=== PATIENT | male | born 1940 | race Caucasian/White ===

== ENCOUNTER 2021-07-04 10:50 | Outpatient (REF) | payer OTHER, SELFPAY ==
--- NOTE | ~2021-07-04 | MR_ITS ---
EXAMINATION: MR BRAIN WITHOUT AND WITH CONTRAST CLINICAL INFORMATION: Left-sided hearing loss. COMPARISON: No relevant prior imaging. TECHNIQUE: Multiplanar MR imaging of the brain was performed without and with contrast. A total of 10 mL Gadavist was utilized for this examination. FINDINGS: There is no cerebellopontine angle cistern mass. No abnormal enhancement along the cisternal segments of the 7th or 8th cranial nerves. Labyrinthine structures are morphologically normal. Trace left mastoid tip effusion. No abnormal petrous temporal bone enhancement. Postcontrast images of the whole brain reveal no abnormal mass or enhancement elsewhere within the intracranial compartment. There is no intracranial mass effect or midline shift. No abnormal extra-axial collection. Lateral and third ventricles are normal. No hydrocephalus. Midline structures including the cervicomedullary junction are normal. No acute bone marrow signal changes. There are scattered nonspecific foci of T2 FLAIR signal hyperintensity within the periventricular white matter that most likely represent a chronic manifestation of small vessel ischemia. Prominent perivascular spaces are also visualized within the right lentiform nucleus and the left thalamus. No acute territorial infarct. No pathological magnetic susceptibility artifact. MR/MR head/brain wo/w con IMPRESSION: There are scattered chronic small vessel ischemic changes within the periventricular white matter. Otherwise unremarkable examination. No evidence of acute territorial infarct or hemorrhage. No discrete anatomic finding to provide an explanation for this patient's left-sided hearing loss.
== END 2021-07-04 10:51 | disposition home or self-care (01) ==
LOC: HO.MRI 10:50
PROVIDERS: PCP Obstetrics & Gynecology; Visit Provider Internal Medicine
DX: H91.93 Unspecified hearing loss, bilateral (principal)
CPT/HCPCS: 70553; A9585

== ENCOUNTER 2023-03-19 07:13 | Emergency (ER) | payer OTHER, SELFPAY ==
--- NOTE | ~2023-03-19 | CT_ITS ---
EXAMINATION: CT angio head neck CLINICAL INFORMATION: Left-sided weakness. COMPARISON: CT head 03/19/2023. Brain MRI 07/04/2021. TECHNIQUE: Risk Investigator images were obtained. A CT angiogram of the head and neck was performed in the arterial phase after the intravenous administration of 70 mL Omnipaque 350. Pre and delayed postcontrast images of the head were also obtained. 3D images were processed on an independent workstation under concurrent supervision. Arterial stenoses are measured in accordance with NASCET criteria or similar method if applicable. This CT examination was performed using dose optimization techniques as appropriate, including one or more of the following: Automated exposure control, iterative reconstruction, and adjustment of technique factors (mA and/or kVp) according to patient size (this includes techniques or standardized protocols for targeted exams where dose is matched to indication/reason for exam). Fleischner Society criteria for the followup of incidental pulmonary nodules was implemented if appropriate. Total exam dose-length product 1500 mGy-cm FINDINGS: Head: Delayed postcontrast images reveal no abnormal intracranial mass or enhancement. There is no intracranial mass effect midline shift. Lateral and third ventricles are normal. No hydrocephalus. Knapp-white matter differentiation is preserved and there is no evidence of acute territorial infarct. The calvarium and skull base are intact. Mastoid air cells and middle ear cavities are well aerated. Mild to moderate paranasal sinus disease primarily affecting the ethmoid air cells. Globes and orbits are symmetric. CT angiogram neck: Patient motion degrades image quality on this component examination. Diagnostic quality is therefore limited. Scattered atheromatous calcification involves the aortic arch apex. Origins of major aortic branches are patent. Common carotid arteries are patent. Heavily calcified atherosclerotic plaque involves both carotid bifurcations and there is 75% stenosis at the origins of both internal carotid arteries. The cervical segments of the vertebral arteries are grossly patent. CT angiogram head: Atheromatous calcification involves the cavernous segments of both internal carotid arteries. Intracranial internal carotid arteries are otherwise patent. The right intradural vertebral artery is hypoplastic and the right vertebral artery primarily disease as the PICA. The left intradural vertebral artery is widely patent and continues as the basilar. 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 This finding is best demonstrated on axial image 259 of 126 series 6. There is a high density filling defect possibly representing a calcified atheroembolism located within the right middle cerebral artery bifurcation that appears to result in occlusion of an M2 branch of the right middle cerebral artery. There is also a nonocclusive component of this filling defect that extends into another anterior M2 branch. Anterior, middle, and posterior cerebral artery complexes are otherwise unremarkable. The timing of the contrast injection provides adequate opacification of the dural venous sinuses which are patent. Other: No tissue is atrophic. Visualized soft tissues of the neck are otherwise unremarkable. Grossly no pathologically enlarged cervical lymph nodes. Lung apices are clear. There is advanced multilevel degenerative spondylosis of the cervical spine with at least moderate canal stenosis at multiple levels. Grossly no worrisome lytic or blastic osseous lesion. CT/CT angio head neck IMPRESSION: Patient motion degrades image quality on this component examination. Diagnostic quality is therefore limited. Heavily calcified atheromatous plaque involves both carotid bifurcations and there is 75% stenosis at the origins of both internal carotid arteries. Cervical vertebral arteries are grossly patent. There is a high density filling defect possibly representing a calcified atheroembolism located within the distal M1 segment of the right middle cerebral artery that appears to result in occlusion of an M2 branch of the right middle cerebral artery. There is also a nonocclusive component of this filling defect that extends into another anterior M2 branch of the right middle cerebral artery. 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 There is advanced multilevel degenerative spondylosis of the cervical spine with at least moderate canal stenosis at multiple levels. If there are clinical symptoms of compressive myelopathy then a dedicated cervical spine MRI can be obtained for better anatomic characterization of the cord and canal. This critical result was discussed with Martha Oneal MD at 8:37 AM and 8:49 AM on 03/19/2023 and it was ascertained that the content and urgency of the report was understood at the time of direct communication.
--- NOTE | ~2023-03-19 | CT_ITS ---
EXAMINATION: CT HEAD WITHOUT CONTRAST (STROKE PROTOCOL) CLINICAL INFORMATION: Stroke protocol. Left-sided deficits. COMPARISON: MRI of head from 07/04/2021. TECHNIQUE: Contiguous axial imaging was performed from the skull base to vertex without intravenous administration of contrast. This CT examination was performed using dose optimization techniques as appropriate, variously including the following: *Automated exposure control *Adjustment of mA and/or kV according to patient size (this includes techniques or standardized protocols for targeted exams where dose is matched to indication/reason for exam; i.e. extremities or head) *Use of iterative reconstruction technique DLP: 655 mGy-cm FINDINGS: There is atherosclerotic calcification of cavernous carotid arteries. Also, there is linear calcific density (approximately 150 HU attenuation) in region of junction of M1 and M2 segments of the right middle cerebral artery. The burnett-white matter differentiation is maintained. No evidence of intracranial hemorrhage, extra-axial surface collection, focal mass effect or midline shift. There is hypoattenuation within deep/periventricular white matter compatible with sequela chronic microangiopathy. There are old small lacunar infarcts of the right caudate head and left thalamus. Mild parenchymal volume loss with commensurate prominence of ventricles and sulci. There have been ocular lens extractions. Minimal mucosal thickening of maxillary and sphenoid sinuses. The evaluation of temporomandibular joints is partially limited by patient motion. There might be an old healed fracture of the right mandibular condyle. CT/CT head for stroke IMPRESSION: * No evidence of acute hemorrhage or acute major vascular territory infarction. * There is linear calcific density in region of junction of M1/M2 segments of the right middle cerebral artery. Consider correlation with CT angiography to evaluate flow through the major cerebral vessels. * There are old lacunar infarcts of the right caudate head and left thalamus. All also, chronic mild small vessel ischemic changes are present within supratentorial white matter. This critical result was discussed with ASHLEY Cheema, and Dr. Oneal at 7:40 AM on 03/19/2023. It was ascertained that the content and urgency of the report was understood at the time of direct communication.
--- NOTE | 2023-03-19 07:17 | ECG_ITS ---
Test Reason : STROKE Blood Pressure : / mmHG Vent. Rate : 059 BPM Atrial Rate : 059 BPM P-R Int : 264 ms QRS Dur : 110 ms QT Int : 438 ms P-R-T Axes : 080 -15 060 degrees QTc Int : 433 ms Poor data quality Sinus bradycardia with 1st degree A-V block Left axis deviation Borderline ECG When compared with ECG of 07-JAN-2018 09:38, Nonspecific T wave abnormality no longer evident in Lateral leads Referred By: Martha Onael Electronically Signed By:BABAK ACUNA MD
--- NOTE | 2023-03-19 07:18 | ED_ITS ---
HPI - Neuro Symptoms/Deficit General Chief Complaint: Stroke Stated Complaint: STROKE ALERT,LKWT LAST NOC,L DROOP Time Seen by Provider: 03/19/23 07:15 Source: patient and EMS Mode of arrival: EMS History of Present Illness HPI Narrative: 82-year-old male who is brought in by EMS with last known well of last night at approximately 21:00, on blood thinners, found on the floor this morning and significant left-sided deficits. Related Data Allergies Allergy/AdvReac Type Severity Reaction Status Date / Time felodipine [FELODIPINE] Allergy Unknown UNKNOWN Unverified 02/05/20 15:21 lisinopril [LISINOPRIL] Allergy Unknown UNKNOWN Unverified 02/05/20 15:21 Felodipine Allergy Unknown Uncoded 01/16/18 00:00 Review of Systems 2 Review of Systems: Pertinent positives and negatives as stated in HPI [facility] Social History Social History Advance Directives: No Physical Exam 2 Vital Signs: Vital Signs: Last Vital Signs Temp 98 F 03/19/23 07:31 Pulse 58 03/19/23 08:21 Resp 14 03/19/23 08:21 BP 164/70 H 03/19/23 08:21 Pulse Ox 98 03/19/23 08:21 O2 Del Method Nasal Cannula 03/19/23 08:21 O2 Flow Rate 1 03/19/23 08:21 BMI result Body Mass Index 30.0 VITAL SIGNS: Reviewed. GENERAL: Well developed, well nourished, in no acute distress. HEAD: Normocephalic/atraumatic, EYES: PERRLA, EOMI intact without pain, no nystagmus/pallor/icterus noted EARS: Ext canals without abnormality, TMs non-bulging and non-erythematous NOSE: Nares patent bilateral OROPHARYNX: no oral lesions noted, posterior pharynx clear and non-erythematous without noted tonsillar enlargement/erythema/exudates NECK: Supple, no adenopathy LUNGS: Normal breath sounds. No adventitious sounds or accessory muscle use. SpO2<> CARDIOVASCULAR: Regular rate and rhythm without noted murmurs, no JVD or lower extremity edema. ABDOMEN: Soft, non-tender, non-distended with bowel sounds. No rigidity. No guarding. No palpable masses or hernias noted MUSCULOSKELETAL: No tenderness, deformities, or effusions noted on gross inspection. EXTREMITIES: No cyanosis, clubbing or edema. SKIN: Inspection of the skin reveals no rashes, ulcerations, jaundice, pallor, or petechiae. NEUROLOGIC: Alert and oriented x 4. Strength and sensation to light touch were grossly intact x 4. Medications Administered Discontinued Medications Generic Name Dose Route Start Last Admin Trade Name Riki PRN Reason Stop Dose Admin Iohexol 100 ml 03/19/23 08:05 03/19/23 08:05 Iohexol 350 Mg/Ml 100 Ml Infus..Btl IV 03/19/23 08:06 70 ml ONCE ONE Administration Medical Decision Making Medical Decision Making [facility] Narrative: 0715: 82-year-old male on anticoagulation presents with left-sided deficits. 0725: [facility] get [facility]none seen on patient's provided med list. 0727: Unoffocial read is RIGHT MCA clot from Dr Lagos. Awaiting [place] read. 0740: Discussed with neurology, Dr Sarmiento with wake-up stroke and recommend transfer to [facility] 0742: Spoke to [place] radiology regarding ?calcific density on the right with ?M1/M2 occlusion, recommends CT angio head/neck. proceeding with CT angio head/neck 0744: Spoke with [facility] who will page neuroendovascular specialist. 0750: I spoke with Dr Carrillo, recommends Ed-to-ED for perfusion scan, ALS called. 0755: Spoke with Dr Barnes, ED, regarding transfer and plan. 0809: Review of investigations demonstrates hematologic indices without leukocytosis but there is a noted left shift, there is a macrocytic anemia with no indication of acute bleeding at this time and there is a noted thrombocytopenia. There are no laboratory testing for comparison but blood pressure and heart rate are stable. Coagulation studies are within normal limits. 0826: ALS arrived Differential Diagnosis Differential Diagnoses: The differential diagnosis associated with the presentation includes Please see the discussion above Admission/Observation Consideration of admission/observation: Escalation of care including admission/observation considered Please see the discussion above Consult Healthcare Provider Management of the patient was discussed with: Sustain Engineer Please see the discussion above Lab Data [facility] Lab Attestation statement: I reviewed the patient's lab results. Please see the discussion above 03/19/23 07:58 03/19/23 07:58 Labs: Lab Results 03/19/23 03/19/23 Range/Units 07:19 07:58 WBC 7.0 (4.8-10.8) X10*3/uL RBC 2.28 L (4.60-5.80) X10*6/uL Hgb 7.1 L (14.0-18.0) g/dl Hct 22.5 L (42.0-52.0) % MCV 98.7 H (80.0-98.0) fL MCH 31.1 (27.0-33.0) pg MCHC 31.6 (31.0-36.0) g/dl RDW 17.4 H (11.0-16.0) % Plt Count 140 L (160-400) X10*3/uL MPV 11.8 (9.4-12.4) fL Immature Gran % (Auto) 0.4 (0.0-0.4) % Neut % (Auto) 76.4 H (45-73) % Lymph % (Auto) 9.1 L (20-40) % Caldwell % (Auto) 8.3 (2-11) % Eos % (Auto) 5.2 H (0-4) % Baso % (Auto) 0.6 (0-2) % Lymph # (Auto) 0.6 L (1.2-4.9) X10*3/uL Caldwell # (Auto) 0.6 (0.1-1.2) X10*3/uL Eos # (Auto) 0.4 (0.0-0.4) X10*3/uL Baso # (Auto) 0.0 (0.0-0.2) X10*3/uL Abs Immat Gran (auto) 0.03 (0.00-0.03) X10*3/uL Absolute Neuts (auto) 5.3 (2.0-8.3) x10*3/uL Absolute Nucleated RBC 0.000 (0.0-0.012) X10*3/uL Nucleated RBC % (auto) 0.0 (0.0-0.2) /100WBC PT 12.9 (11.1-13.3) SEC INR 1.1 (0.9-1.1) APTT 29.5 (26.0-36.4) SEC POC Glucose 101 (60-115) mg/dL Independent Interpretation I performed an independent interpretation of an: EKG Interpretation: Sinus bradycardia with first-degree AV block, HR -59, no STEMI, [place]-to 64, QRS- 110, QTC within normal limits. Radiology Impression Discussion of test interpretation with radiology: I have reviewed the radiologist's reading. Radiologist Impression: Please see the discussion above Independent Historian Clinical information obtained from an independent historian. History obtained from or confirmed by: EMS and Other Granddaughter Chronic Conditions Patient?s care impacted by: Diabetes and Hypertension NIH Stroke Scale Internal: Initial- Upon Arrival Level of Consciousness: Alert Level of Consciousness Questions: Answers both questions correctly Level of Consciousness Commands: Performs both tasks correctly Best Gaze: Normal Visual: No visual loss Facial Palsy: Normal Motor Arm (Right): No drift Motor Arm (Left): Some effort against gravity Motor Leg (Right): No drift Motor Leg (Left): Some effort against gravity Limb Ataxia: Absent Sensory: Normal Best Language: No aphasia Dysarthia: Mild to moderate dysarthria Extinction and Inattention: No abnormality Score: 5 Critical Care Time Critical Care Time Critical Care Time: Yes Total Critical Care Time: 60 Attestation: I personally attest to this time spent taking care of the patient. 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
[2023-03-19 07:31] VITALS: BP 179/57; PULSE 79; RESP 19; TEMP 36.6; O2SAT 94
[2023-03-19 08:03] LABS: MANUAL DIFF FLAG NO
[2023-03-19 08:04] LABS: Basophils Percent Auto 0.6 % (0-2); Eosinophils Absolute Auto 0.4 X10*3/uL (0.0-0.4); Eosinophils Percent Auto 5.2 % (0-4); Hematocrit 22.5 % (42.0-52.0); Hemoglobin 7.1 g/dl (14.0-18.0); Imm Gran Abs Auto 0.03 X10*3/uL (0.00-0.03); Imm Gran Pct Auto 0.4 % (0.0-0.4); Lymphocytes Absolute Auto 0.6 X10*3/uL (1.2-4.9); Lymphocytes Percent Auto 9.1 % (20-40); Mean Corpuscular HGB Conc 31.6 g/dl (31.0-36.0); Mean Corpuscular Hemoglobin 31.1 pg (27.0-33.0); Mean Corpuscular Volume 98.7 fL (80.0-98.0); Mean Platelet Volume 11.8 fL (9.4-12.4); Monocytes Absolute Auto 0.6 X10*3/uL (0.1-1.2); Monocytes Percent Auto 8.3 % (2-11); Neutrophils Absolute Auto 5.3 x10*3/uL (2.0-8.3); Neutrophils Percent Auto 76.4 % (45-73); Platelet Count 140 X10*3/uL (160-400); Red Blood Count 2.28 X10*6/uL (4.60-5.80); Red Cell Distribution Width 17.4 % (11.0-16.0)
[2023-03-19] MEDS: iohexoL 350 MG/ML 100 ML INFUS..BTL IV (08:05)
--- NOTE | 2023-03-19 08:06 | PC.NURSE ---
ALERT, SLURRED SPEACH, SKIN WPD, SR ON MONITOR, ABLE TO STATE THAT HE FELL AT APPROX 0600 DUE TO L WEAKNESS, DENIES PAIN, CT AND CTA COMPLETE, LABS SENT, AWARE OF CARE PLAN TO SEND TO [facility] and agreeable
[2023-03-19 08:10] VITALS: BP 190/39; PULSE 57; RESP 18; O2SAT 99
[2023-03-19 08:15] LABS: INTERNATIONAL NORM RATIO 1.1 (0.9-1.1); Prothrombin Time 12.9 SEC (11.1-13.3)
[2023-03-19 08:17] LABS: Partial Thromboplastin Time 29.5 SEC (26.0-36.4)
[2023-03-19 08:18] LABS: Stroke Lab Use COMPLETE
[2023-03-19 08:21] VITALS: BP 164/70; PULSE 58; RESP 14; O2SAT 98
[2023-03-19 08:23] LABS: Glucose, Whole Blood 101 mg/dL (60-115)
--- NOTE | 2023-03-19 08:23 | PC.NURSE ---
bp 164/70, hydralazine held per dr walters
[2023-03-19 08:26] LABS: Anion Gap 10 (12-20); Blood Urea Nitrogen 44 mg/dL (9-16); Calcium 8.3 mg/dL (8.4-10.2); Carbon Dioxide 20 mmol/L (22-29); Chloride 114 mmol/L (96-108); Creatinine Clr Calc Pharmacy 29.9; Estimated Glomerular Filt Rate 28; Glucose Random 112 mg/dL (60-115); Potassium 4.8 mmol/L (3.3-5.1); Sodium 139 mmol/L (135-145)
[2023-03-19 08:38] LABS: COVID-19 Test Negative (Negative); IDNOW Serial# 55D5AD1C
== END 2023-03-19 08:44 | disposition short-term general hospital (02) ==
PROVIDERS: Emergency Provider Student in an Organized Health Care Education/Training Program; PCP Internal Medicine
DX: I63.9 Cerebral infarction, unspecified (principal); R29.705 NIHSS score 5; R29.810 Facial weakness; R00.1 Bradycardia, unspecified; Z11.52 Encounter for screening for COVID-19; Z20.822 Contact with and (suspected) exposure to COVID-19; Z79.899 Other long term (current) drug therapy
CPT/HCPCS: 36415; 70450; 70496; 70498; 80048; 82550; 82947; 84484; 85025; 85610; 85730; 87635; 93005; 99285; Q9967